=== PATIENT | male | born 1965 | race Caucasian/White ===

== ENCOUNTER 2017-06-16 04:43 | Emergency (ER) | payer OTHER ==
[~2017-06-16] VITALS: Ht 177.8 cm; Wt 68.0 kg
[2017-06-16] MEDS ORDERED: IBUPROFEN 600MG TABLET PO STA (06:28)
[2017-06-16 06:48] LABS: BASOPHILS % 0.7 % (0.0-2.0); EOSINOPHILS % 0.3 % (0.0-5.0); HEMATOCRIT. 47.3 % (42.0-52.0); HEMOGLOBIN. 16.4 g/dL (14.0-18.0); LYMPHOCYTES % 51.3 % (20.0-50.0); MEAN CORPUSCULAR HEMOGLOBIN 35.1 pg (28.0-32.0); MEAN CORPUSCULAR VOLUME 101.4 fL (80.0-94.0); MEAN PLATELET VOLUME 7.9 fl (7.4-10.4); NEUTROPHILS % 40.7 % (40.0-76.0); PLATELET 261 x1000/uL (130-400); RED BLOOD CELL COUNT 4.67 mill/uL (4.7-6.1); RED CELL DISTRIBUTION WIDTH 15.4 % (11.6-14.6)
[2017-06-16 06:56] LABS: CHLORIDE 102 mEq/L (98-107)
[2017-06-16 07:03] LABS: CARBON DIOXIDE 22 mEq/L (21-32)
[2017-06-16 07:16] LABS: ETHANOL BLOOD 367 mg/dL
[2017-06-16 09:30] VITALS: BP 135/75
== END 2017-06-16 09:30 | disposition home or self-care (01) ==
LOC: ER 04:43
DX: S20.219A Contusion of unspecified front wall of thorax, initial encounter (principal); F10.129 Alcohol abuse with intoxication, unspecified; R56.9 Unspecified convulsions; X58.XXXA Exposure to other specified factors, initial encounter; Y93.89 Activity, other specified; Y92.89 Other specified places as the place of occurrence of the external cause; Y99.8 Other external cause status
CPT/HCPCS: 36415; 71111; 80053; 83690; 85025; 93005; 99285; G0482